=== PATIENT | male | born 1980 | race African-American/Black ===

== ENCOUNTER 2017-12-05 04:16 | Emergency (ER) | payer OTHER, SELFPAY ==
[~2017-12-05] VITALS: Ht 177.8 cm; Wt 70.3 kg
[~2017-12-05 04:16] MED LIST: KEFLEX500 MG ORAL; NORCO 5-325 TA1 EACH ORAL
--- NOTE | 2017-12-05 04:47 | Emergency Room Report ---
History of Present Illness General Chief Complaint: Upper Extremity Injury Source: Patient Present Illness HPI The patient states he fell. He has problems with his right ankle and foot. It sometimes causes severe pain. When this happened tonight he fell and hit his right hand. He denies loss of consciousness. Complains of 10/10 pain in his hand - aching and throbbing. There is swelling. No numbness. No bleeding. The right ankle and foot injury is old (2 years - basketball injury) but he never had it evaluated. He doesn't take any medication for it. there is clicking when he bends and extends his foot. The patient refuses to get tetanus vaccinations and it's been greater than 10 years. The patient denies alcohol or drugs. He is right-handed. 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, mechanic chief, not working Immunizations: other - refuses tetanus Reviewed Nursing Documentation: PMH: Agreed, PSxH: Agreed Nursing Documentation-PMH Past Medical History: No Stated History Review of Systems Constitutional: Denies: fever Musculoskeletal: Reports: see HPI Skin: Reports: see HPI Neurological: Reports: see HPI Hematologic/Lymphatic: Reports: see HPI Physical Exam Vital Signs Date Time Temp Pulse Resp B/P (MAP) Pulse Ox O2 Delivery O2 Flow Rate FiO2 12/05/17 04:23 99.3 74 16 106/71 100 Room Air Musculoskeletal: swelling - index and middle MCPs, other - crepetance R ankle Psychiatric: mood/affect normal Skin: abrasions - R middle knuckle Medical Decision Making Diagnostic Impression: Primary Impression: Contusion of right hand Qualified Codes: S60.221A - Contusion of right hand, initial encounter Additional Impression: Old fracture right ankle ER Course Patient presents with right hand injury. In addition to that he has a subacute right ankle issue. Differential includes fracture, contusion abrasion. Regarding ankle the ligaments are stable however there is crepitance suggesting possible bony fragment or cartilaginous fragments in the joint. X-rays are indicated. The patient was offered Motrin. He felt that Motrin was probably not to be adequate to control his pain. He said we would start with that. For reported pain level, patient calm and laughing. Advised to get tetanus. He refused. I explained risk of refusal. Xrays reveal old fx of ankle. Hand normal. Aces and air splint applied by me. Tension and position excellent. Neurovasc checked by me and normal. Pressuring for "strong" pain medicine. Advised of need for orthopedic follow up regarding his ankle. Patient stable for outpatient observation and treatment. Other X-Ray Diagnostic Results Other X-Ray Diagnostic Results #1: X-Ray ordered: r foot # of Views/Limited Vs Complete: 3 View Indication: Pain Interpretation: no dislocation, no soft tissue swelling, other - old fx ankle Impression: Other Electronically Signed by: Electronically signed by George Augustin MD Other X-Ray Diagnostic Results #2: X-Ray ordered: r ankle # of Views/Limited Vs Complete: 3 View Indication: Pain EP Interpretation: Yes Interpretation: no dislocation, no soft tissue swelling, other - old fx Impression: Other Electronically Signed by: Electronically signed by George Augustin MD Other X-Ray Diagnostic Results #3: X-Ray ordered: r hand # of Views/Limited Vs Complete: 3 View Indication: Pain Interpretation: no dislocation, no soft tissue swelling, no fractures Impression: No acute disease Electronically Signed by: Electronically signed by George Augustin MD Last Vital Signs Date Time Temp Pulse Resp B/P (MAP) Pulse Ox O2 Delivery O2 Flow Rate FiO2 12/05/17 05:42 99.3 16 106/71 100 Room Air 12/05/17 04:23 74 Status: improved Disposition: HOME, SELF-CARE Condition: Improved Scripts Tramadol Hcl* (ULTRAM*) 50 Mg Tablet 50 MG ORAL Q6H Y for For Pain, #8 TAB 0 Refills Prov: George Augustin M.D. 12/05/17 Ibuprofen* (MOTRIN*) 600 Mg Tablet 600 MG ORAL Q6H Y for For Pain, #20 TAB Prov: George Aguustin M.D. 12/05/17 Referrals: MATHEUS MICHELLE,REFERRING (PCP) George Augustin M.D. Dec 05, 2017 04:47
[2017-12-05] MEDS ORDERED: TRAMADOL HCL50 MG ORAL (05:40)
[2017-12-05] MEDS ORDERED: IBUPROFEN600 MG ORAL (05:40)
[2017-12-05 05:42] VITALS: BP 106/71
--- NOTE | 2017-12-05 09:07 | Diagnostic Imaging Report ---
Indication: Trauma with pain Technique: Right hand, 3 views Comparison: None. Findings: The osseous structures are intact. There is no fracture or destruction. The visualized joints are normal. The soft tissues are unremarkable. Impression: Normal.
--- NOTE | 2017-12-05 09:11 | Diagnostic Imaging Report ---
Indication: Trauma with pain Technique: Foot, 3 views Comparison: None. Findings: The osseous structures are intact. There is no fracture or destruction. The visualized joints are normal. The soft tissues are unremarkable. Is a mild bunion deformity of the first metatarsal. Impression: Mild bunion deformity of the first metatarsal. Otherwise negative.
--- NOTE | 2017-12-05 09:12 | Diagnostic Imaging Report ---
Indication: Trauma with pain Technique: XRAY Ankle Compl Min 3v R Comparison: None. Findings: There is an ossified density anterior to the ankle mortise. The mortise is intact. No fracture. No evidence of bone destruction. Impression: Ossified density anterior to the ankle mortise. The possibility of a loose body cannot be excluded. Otherwise negative.
== END 2017-12-05 05:51 | disposition home or self-care (01) ==
LOC: EMR 04:39
DX: S60.221A Contusion of right hand, initial encounter (principal); S82.891A Other fracture of right lower leg, initial encounter for closed fracture; W19.XXXA Unspecified fall, initial encounter; Y92.9 Unspecified place or not applicable; M21.611 Bunion of right foot
CPT/HCPCS: 29540; 99284

== ENCOUNTER 2018-04-24 01:11 | Emergency (ER) | payer OTHER ==
[~2018-04-24] VITALS: Ht 177.8 cm; Wt 70.3 kg
[~2018-04-24 01:11] MED LIST changes: +IBUPROFEN600 MG ORAL; +TRAMADOL HCL50 MG ORAL
[2018-04-24 01:30] VITALS: BP 116/71
--- NOTE | 2018-04-24 01:46 | Emergency Room Report ---
History of Present Illness General Chief Complaint: Pain Source: Patient Present Illness Allergies: Coded Allergies: No Known Allergies (Unverified , 05/12/14) Nursing Documentation-[facility] Past Medical History: No Stated History Physical Exam Vital Signs Date Time Temp Pulse Resp B/P (MAP) Pulse Ox O2 Delivery O2 Flow Rate FiO2 04/24/18 01:21 98.8 79 18 116/71 98 Room Air 98.8 Medical Decision Making ER Course Patient left prior to being seen Last Vital Signs Date Time Temp Pulse Resp B/P (MAP) Pulse Ox O2 Delivery O2 Flow Rate FiO2 04/24/18 01:21 98.8 79 18 116/71 98 Room Air 98.8 Status: other Disposition: LEFT W/OUT BEING SEEN Condition: Unknown Referrals: MATHEUS MICHELLE,REFERRING (PCP) Martine Rodriguez DO Apr 24, 2018 01:46
[2018-04-24] MEDS ORDERED: IBUPROFEN600 MG ORAL (01:54)
[2018-04-24 02:00] VITALS: BP 0/0
[2018-04-24] MEDS ORDERED: CEPHALEXIN500 MG ORAL (02:02)
== END 2018-04-24 02:00 | disposition left against medical advice (07) ==
LOC: EMR 01:33
DX: Z53.21 Procedure and treatment not carried out due to patient leaving prior to being seen by health care provider (principal)
CPT/HCPCS: 99281

== ENCOUNTER 2018-10-27 20:24 | Emergency (ER) | payer SELFPAY ==
[~2018-10-27] VITALS: Ht 177.8 cm; Wt 72.6 kg
[~2018-10-27 20:24] MED LIST changes: +CEPHALEXIN500 MG ORAL
[2018-10-27] MEDS ORDERED: NKM (20:40)
[2018-10-27 20:56] VITALS: BP 121/86
[2018-10-27] MEDS ORDERED: IBUPROFEN600 MG ORAL (21:20)
--- NOTE | 2018-10-27 21:20 | Emergency Room Report ---
History of Present Illness General Chief Complaint: Flu Like Symptoms Source: Patient Present Illness HPI This a 38-year-old male with no past medical history. He presents with chief complaint of headache and feeling nauseous. Onset was around noon. He suspect that there was something in his food. He ate lasagna and put serology on it. He believed that someone in the family may have put something in his serology sauce. He said he looked different. He said his darker red than usual. He denies any fever or chills. Denies any vomiting. No diarrhea. Pain is 7 out of 10. Throbbing in nature. Denies any other complaint. Allergies: Coded Allergies: No Known Allergies (Unverified , 05/12/14) Patient History Past Medical History: see triage record, old chart reviewed Past Surgical History: none Pertinent Family History: none Social History: Denies: smoking Immunizations: other Reviewed Nursing Documentation: PMH: Agreed; PSxH: Agreed Nursing Documentation-PMH Past Medical History: No Stated History Review of Systems Eye: Denies: eye pain, blurred vision ENT: Denies: ear pain, nose congestion, throat swelling Respiratory: Denies: cough, shortness of breath Cardiovascular: Denies: chest pain, palpitations Gastrointestinal: Reports: nausea; Denies: abdominal pain, diarrhea, vomiting Musculoskeletal: Denies: back pain, joint pain Skin: Denies: rash Neurological: Reports: headache; Denies: numbness Endocrine: Denies: increased thirst, increased urine Hematologic/Lymphatic: Denies: easy bruising All Other Systems: negative except mentioned in HPI Physical Exam Vital Signs Date Time Temp Pulse Resp B/P (MAP) Pulse Ox O2 Delivery O2 Flow Rate FiO2 10/27/18 20:38 98.4 68 16 121/86 97 vitals and normal Sp02 EP Interpretation: reviewed, normal General Appearance: well appearing, no apparent distress, alert Head: normocephalic, atraumatic Eyes: bilateral eye PERRL, bilateral eye EOMI ENT: hearing grossly normal, normal pharynx Neck: full range of motion, supple, no meningismus Respiratory: chest non-tender, lungs clear, normal breath sounds Cardiovascular #1: regular rate, rhythm, no murmur Gastrointestinal: normal bowel sounds, non tender, no mass, no organomegaly, no bruit, non-distended Musculoskeletal: back normal, gait/station normal, normal range of motion Psychiatric: mood/affect normal Skin: warm/dry Medical Decision Making Diagnostic Impression: Primary Impression: Headache Qualified Codes: R51 - Headache ER Course patient presents with headache and nausea. He was on the phone talking without any distress. In fact he would not hang up when I came into the room. He was in no distress. No evidence of meningitis, bleed, neoplastic process. Family wanted me to test the urologist [place] in the [facility] that he ate to see if there is anything in it. I told patient that we don't do that here. This may be an early gastroenteritis or if this is food poisoning it will pass. Last Vital Signs Date Time Temp Pulse Resp B/P (MAP) Pulse Ox O2 Delivery O2 Flow Rate FiO2 10/27/18 20:56 98.4 88 16 121/86 97 Status: improved Disposition: HOME, SELF-CARE Condition: Stable Scripts Ibuprofen* (MOTRIN*) 600 Mg Tablet 600 MG ORAL THREE TIMES A DAY, #30 TAB 0 Refills Prov: Alex Ortiz MD 10/27/18 Additional Instructions: Follow-up with your doctor in 7 days. Return if symptom worsen. Alex Ortiz MD Oct 27, 2018 21:20
[2018-10-27 21:26] VITALS: BP 126/80
== END 2018-10-27 21:40 | disposition home or self-care (01) ==
LOC: EMR 21:31
DX: R51 Headache (principal); R11.0 Nausea
CPT/HCPCS: 99282

== ENCOUNTER 2019-10-15 17:16 | Emergency (ER) | payer SELFPAY ==
[~2019-10-15] VITALS: Ht 177.8 cm; Wt 72.6 kg
[~2019-10-15 17:16] MED LIST changes: +NKM
[2019-10-15] MEDS ORDERED: Bicillin LA 2.4MMU/4ML SYR IM ONE (17:45)
[2019-10-15 17:58] VITALS: BP 115/78
[2019-10-15 19:02] VITALS: BP 118/70
--- NOTE | 2019-10-15 20:44 | Emergency Room Report ---
History of Present Illness General Chief Complaint: Male Urogenital Problems Source: Patient Present Illness HPI 39-year-old male presents ED for evaluation. States that he may have an STD. States that he has had unprotected sex in the last few weeks. States he started noticing sores on his penis and on his hand. States they are irritating. Denies any discharge. Denies any fevers or chills. Denies any weakness. No other aggravating relieving factors. Denies any other associated symptoms Allergies: Coded Allergies: No Known Allergies (Unverified , 05/12/14) Patient History Past Medical History: none Past Surgical History: none Pertinent Family History: none Social History: Denies: smoking, alcohol use, drug use Immunizations: UTD Reviewed Nursing Documentation: PMH: Agreed; PSxH: Agreed Nursing Documentation-PMH Past Medical History: No Stated History Review of Systems All Other Systems: negative except mentioned in HPI Physical Exam Vital Signs Date Time Temp Pulse Resp B/P (MAP) Pulse Ox O2 Delivery O2 Flow Rate FiO2 10/15/19 17:20 98.1 67 17 115/78 (90) 100 Room Air Sp02 EP Interpretation: reviewed, normal General Appearance: no apparent distress, alert, GCS 15, non-toxic Head: normocephalic Eyes: bilateral eye normal inspection, bilateral eye PERRL ENT: normal ENT inspection Neck: normal inspection Respiratory: normal inspection Cardiovascular #1: normal inspection Gastrointestinal: normal inspection Rectal: deferred Genitourinary: no CVA tenderness, other - ulcerations noted to penis Musculoskeletal: normal inspection Neurologic: alert, motor strength/tone normal, oriented x3, sensory intact, responsive, speech normal Psychiatric: judgement/insight normal, memory normal, mood/affect normal, no suicidal/homicidal ideation Skin: other - papules noted to hands bilatearlly Lymphatic: normal inspection Medical Decision Making Diagnostic Impression: Primary Impression: STD (male) ER Course Hospital Course 39 yo M presents with penile lesions and sores to hand Differential diagnoses include: trichimonas, gonorrhea, chlamydia Clinical course Patient placed on stretcher. After initial history physical exam reveals a male in no acute distress. On exam there are flesh-colored sores on the penis shaft. No discharge. There also papules on the hands bilaterally. No scrotal tenderness. No urethral discharge. Discussed findings with the patient. Consideration for syphilis. Treated empirically with penicillin G IM. Safe for discharge for close outpatient follow-up. Will provide referrals Diagnosis - STD Stable and discharged home. Instructed to followup with PMD. Return to ED if symptoms recur or worsen Last Vital Signs Date Time Temp Pulse Resp B/P (MAP) Pulse Ox O2 Delivery O2 Flow Rate FiO2 10/15/19 19:02 98.1 68 14 118/70 100 Room Air Status: improved Disposition: HOME, SELF-CARE Condition: Stable Scripts No Active Prescriptions or Reported Meds Referrals: Greg Nieto [facility] Patient Instructions: Syphilis Perico Calero MD Oct 15, 2019 20:44
== END 2019-10-15 19:02 | disposition home or self-care (01) ==
LOC: EMR 17:45
DX: N48.9 Disorder of penis, unspecified (principal); Z20.2 Contact with and (suspected) exposure to infections with a predominantly sexual mode of transmission
CPT/HCPCS: 99283